=== PATIENT | female | born 1945 | race Caucasian/White ===

== ENCOUNTER 2018-07-31 15:40 | Emergency (ER) | payer OTHER ==
[~2018-07-31] VITALS: Ht 149.9 cm; Wt 52.2 kg
[~2018-07-31 15:40] MED LIST: Z.0.OMEPRAZOLE40 MG; Z.0.PLAQUENIL200 MG
[2018-07-31] MEDS ORDERED: ULTRAM50 MG PO (17:28)
[2018-07-31] MEDS ORDERED: ACETAMINOPHEN 325 MG TAB PO STA (22:45)
[2018-07-31] MEDS ORDERED: SODIUM CHLORIDE 0.9% 1000ML 1,000 ML IV STA (22:45)
== END 2018-07-31 19:00 | disposition home or self-care (01) ==
LOC: ER 15:40
DX: S90.812A Abrasion, left foot, initial encounter (principal); I83.892 Varicose veins of left lower extremity with other complications

== ENCOUNTER 2018-11-24 11:44 | Emergency (ER) | payer OTHER ==
[~2018-11-24] VITALS: Ht 144.8 cm; Wt 53.5 kg
[~2018-11-24 11:44] MED LIST changes: +ULTRAM50 MG PO
--- OUTSIDE RECORDS SUMMARY | 2018-11-24 11:48 | XMS REPORT ---
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 Role Phone Tori Barclay Unavailable Allergies, Adverse Reactions, Alerts Substance Reaction Event Type NyQuil Info Not Available Drug Allergy Cefaclor Info Not Available Drug Allergy Problems Problem Type Condition Code Onset Dates Condition Status Assessment Vitamin D deficiency, unspecified E55.9 Active Assessment Sicca syndrome, unspecified M35.00 Active Assessment Other buttermaker continuous churn (current) drug therapy Z79.899 Active Problem Sjogren's disease M35.00 Active Problem Age-related osteoporosis without current pathological fracture M81.0 Active Problem Primary osteoarthritis involving multiple joints M15.0 Active Problem Sicca syndrome, unspecified M35.00 Active Assessment Age-related osteoporosis without current pathological fracture M81.0 Active Problem Other buttermaker continuous churn (current) drug therapy Z79.899 Active Problem Vitamin D deficiency, unspecified E55.9 Active Assessment Encounter for screening examination for impaired glucose regulation and diabetes mellitus Z13.1 Active Assessment Encounter for screening for other viral diseases Z11.59 Active Assessment Primary osteoarthritis involving multiple joints M15.0 Active Medications Medication Code System Code Instructions Start Date End Date Status Dosage Calcitonin ([place]) ND 54323398989 200 UNIT/ACT Nasally Once a day Active 1 puff Vitamin B12 ND 94013125216 1000 MCG Orally Once a day Active [address] [facility] 10162505754 40 PRN Active 1 capsule Calcium + D ND 50803555055 600-200 MG-UNIT Orally Once a day Active 1 tablet Reclast ND 49361485150 5 MG/100ML Intravenous once a year Active 5mg/100ml Hydroxychloroquine Sulfate ND 91017728682 200 MG Orally Once a day Active 2 tablets Vital Signs Date/Time: Aug 11, 2018 BMI 25.68 Index Weight 118.7 lbs Height 57 in Temperature 97.8 F Cardiac Monitoring Heart Rate 70 /min Blood Pressure Diastolic 70 mm Hg Blood Pressure Systolic 126 mm Hg Results No Known Results Summary Purpose eClinicalWorks Submission
--- OUTSIDE RECORDS SUMMARY | 2018-11-24 11:48 | XMS REPORT | Continuity of Care Document ---
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 Active Diagnosis 08/13/2018 Timothy Roberts Sjogren's disease Active Problem 08/13/2018 Timothy Roberts Age-related osteoporosis without current pathological fracture Active Problem 08/13/2018 Timothy Roberts Primary osteoarthritis involving multiple joints Active Problem 08/13/2018 Timothy Roberts Encounter for screening examination for impaired glucose regulation and diabetes mellitus Active Diagnosis 08/13/2018 Timothy Roberts Encounter for screening for other viral diseases Active Diagnosis 08/13/2018 Timothy Roberts Medications Medication Details Route Status Patient Instructions Ordering Provider Order Date Source Calcitonin ([place]) 1 puff Nasally Active 200 UNIT/ACT Nasally Once a day [place] Timothy Roberts Vitamin B12 1 tablet Orally Active 1000 MCG Orally Once a day [place] Timothy Roberts Omeprazole 1 capsule NA Active 40 PRN [place] Timothy Roberts Calcium + D 1 tablet Orally Active 600-200 MG-UNIT Orally Once a day [place] Timothy Roberts Reclast 5mg/100ml Intravenous Active 5 MG/100ML Intravenous once a year [place] Timothy Roberts Hydroxychloroquine Sulfate 2 tablets Orally Active 200 MG Orally Once a day [place] Timothy Roberts Allergies, Adverse Reactions, Alerts Substance Category Reaction Severity Reaction type Status Date Reported Comments Source NyQuil Adverse Reaction Info Not Available Adverse Reaction Active 08/11/2018 Timothy Roberts Cefaclor Adverse Reaction Info Not Available Adverse Reaction Active 08/11/2018 Timothy Roberts Immunizations Immunization Date Given Site Status Last Updated Comments Source Results Order Name Results Value Reference Range Date Interpretation Comments Source Vital Signs Vital Sign Value Date Comments Source Weight 118.7 08/11/2018 Timothy Roberts Height 57 08/11/2018 Timothy Roberts Temperature Oral (F) 97.8 F 08/11/2018 Timothy Roberts Heart Rate 70 08/11/2018 Timothy Roberts Diastolic (mm Hg) 70 08/11/2018 Timothy Roberts Systolic (mm Hg) 126 08/11/2018 Timothy Roberts Encounters Location Location Details Encounter Type Encounter Number Reason For Visit Attending Provider ADM Date DC Date Status Source Procedures Procedure Code Date Perfomer Comments Source
--- OUTSIDE RECORDS SUMMARY | 2018-11-24 11:48 | XMS REPORT ---
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 Allergies, Adverse Reactions, Alerts This patient has no known allergies or adverse reactions. Medications This patient has no known medications. Results Test Description Test Time Test Comments Text Results Atomic Results Result Comments SCR MAMM BILATERAL HAIDER CAD DIGITAL 2018-09-15 15:32:47 - SCR MAMM BILATERAL HAIDER CAD DIGITALBILATERAL DIGITAL SCREENING MAMMOGRAM 3D/2D WITH CAD: 09/14/2018CLINICAL: Asymptomatic. Digital breast tomosynthesis was performed in addition to routine CC and MLO views. Current mammographic images were evaluated by either a [employer] M-Vu or a [employer] CAD (computer aided detection system). Comparison is made to exams dated 09/12/2017 mammogram, mammogram, and 08/31/2014 mammogram - [facility]. The tissue of both breasts is heterogeneously dense. This may lower the sensitivity of mammography. There is a benign calcification in the right breast. No suspicious mass, architectural distortion, malignant type calcification, or lymph node abnormality detected. Breast architecture is stable compared to prior exams.IMPRESSION: BENIGNThere is no mammographic evidence of malignancy. Resume annual screening mammography in one year. Ekta Johnson MD hs/penrad:09/15/2018 15:32:47 Tablet Coater: Jo-Ann Olsen FW, [facility] sent: BIRADS 1-2 Normal Mammogram BI-RADS: 2 Benign SCR MAMM BILATERAL HAIDER CAD DIGITAL 2018-09-15 15:32:47 - SCR MAMM BILATERAL HAIDER CAD DIGITALBILATERAL DIGITAL SCREENING MAMMOGRAM 3D/2D WITH CAD: 09/14/2018CLINICAL: Asymptomatic. Digital breast tomosynthesis was performed in addition to routine CC and MLO views. Current mammographic images were evaluated by either a [employer] M-Vu or a [employer] CAD (computer aided detection system). Comparison is made to exams dated 09/12/2017 mammogram, mammogram, and 08/31/2014 mammogram - [facility] The tissue of both breasts is heterogeneously dense. This may lower the sensitivity of mammography. There is a benign calcification in the right breast. No suspicious mass, architectural distortion, malignant type calcification, or lymph node abnormality detected. Breast architecture is stable compared to prior exams.IMPRESSION: BENIGNThere is no mammographic evidence of malignancy. Resume annual screening mammography in one year. Ekta Johnson MD hs/penrad:09/15/2018 15:32:47 Tablet Coater: Jo-Ann GRAHAM, [facility] sent: BIRADS 1-2 Normal Mammogram BI-RADS: 2 Benign
[2018-11-24] MEDS ORDERED: TRAMADOL HCL 50 MG TAB PO ONE (12:30)
--- NOTE | 2018-11-24 13:21 | Diagnostic Imaging Report ---
Exam: Left hand radiographs 3 views, left wrist radiographs 3 views Comparison: None Findings: There is a comminuted, impacted, dorsally angulated fracture of the distal radius. There is approximately 6 mm of posterior displacement. There is likely intraarticular extension. There is surrounding soft tissue edema. A corticated bony fragment at the distal ulna may represent remote fracture of the ulnar styloid process. Carpal alignment is maintained. Moderate degenerative changes of the first carpometacarpal joint. No other fractures identified within the hand or wrist. Impression: Comminuted, displaced and dorsally angulated fracture of the distal radius. Carpal alignment is maintained. Likely sequela of remote trauma involving the distal ulna. Signed by: Dr. Jose Montesinos MD on 11/24/2018 1:17 PM
[2018-11-24 15:02] VITALS: BP 144/72
== END 2018-11-24 16:40 | disposition home or self-care (01) ==
LOC: FSED 11:44
DX: S52.352A Displaced comminuted fracture of shaft of radius, left arm, initial encounter for closed fracture (principal); W18.39XA Other fall on same level, initial encounter; Y93.K1 Activity, walking an animal; Y92.008 Other place in unspecified non-institutional (private) residence as the place of occurrence of the external cause
CPT/HCPCS: 99284